=== PATIENT | male | born 1960 | race Caucasian/White ===

== ENCOUNTER 2020-08-06 16:42 | Emergency (ER) | payer SELFPAY ==
--- NOTE | 2020-08-06 18:23 | RADIOLOGY REPORT (SQ) ---
EXAM DESCRIPTION: TIBIA FIBULA LEFT IMAGES COMPLETED DATE/TIME: 08/06/2020 6:01 pm REASON FOR STUDY: LLE pain; no injury COMPARISON: None. NUMBER OF VIEWS: Two views. TECHNIQUE: Two radiographic images acquired of the left tibia and fibula to include the knee and ank le in at least one projection. LIMITATIONS: None. FINDINGS: MINERALIZATION: Normal. BONES: No acute fracture or dislocation. No worrisome bone lesions. No significant osteophytes. SOFT TISSUES: Knee joint effusion. No radiopaque foreign body. OTHER: No other significant finding. IMPRESSION: Knee joint effusion. No fracture identified. TECHNICAL DOCUMENTATION: JOB ID: [id number] [place]-72 2010 [employer]- All Rights Reserved Reading location - IP/workstation name: [email or web address]
--- NOTE | 2020-08-06 18:26 | RADIOLOGY REPORT (SQ) ---
EXAM DESCRIPTION: KNEE LEFT 4 VIEW IMAGES COMPLETED DATE/TIME: 08/06/2020 6:01 pm REASON FOR STUDY: LLE pain; no injury COMPARISON: None. EXAM PARAMETERS: NUMBER OF VIEWS: Four views. TECHNIQUE: AP, lateral and oblique radiographic images acquired of the left knee. LIMITATIONS: None. FINDINGS: MINERALIZATION: Normal. BONES: No acute fracture or dislocation. No worrisome bone lesions. JOINTS: Moderate effusion. SOFT TISSUES: No significant soft tissue swelling. No radiopaque foreign body. OTHER: No other significant finding. IMPRESSION: NO FRACTURE. Moderate joint effusion. TECHNICAL DOCUMENTATION: JOB ID: [id number] [place]-72 2010 [employer]- All Rights Reserved Reading location - IP/workstation name: [email or web address]
--- NOTE | 2020-08-06 19:39 | ER Document Report ---
HPI - HPI Time Seen by Provider: 08/06/20 17:14 Pain Level: 2 Context: Patient is a 59-year-old male presents emergency department with a chief complaint of left knee and leg pain. Patient states that he has had on and off pain for the past month. He states that he noticed some swelling to his left leg that started about 3 days ago. 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 He denies any past medical history. He does not take any medications on a regular basis, other than Aleve. Denies any fever, body aches, or chills. Denies any shortness of breath or difficulty breathing. Denies any long car rides. Patient is a smoker. - ROS Systems Reviewed and Negative: Yes All other systems reviewed and negative - CONSTITUTIONAL Constitutional: DENIES: Fever, Chills - RESPIRATORY Respiratory: DENIES: Trouble Breathing - GASTROINTESTINAL Gastrointestinal: DENIES: Abdominal Pain, Nausea, Patient vomiting - MUSCULOSKELETAL Musculoskeletal: REPORTS: Extremity pain - Left knee, Swelling - left knee - DERM Skin Color: Normal Skin Problems: None Past Medical History - General Information source: Patient - Social History Smoking Status: Current Every Day Smoker Family History: Reviewed & Not Pertinent Vertical Provider Document - CONSTITUTIONAL Agree With Documented VS: Yes Exam Limitations: No Limitations General Appearance: No Apparent Distress - INFECTION CONTROL TRAVEL OUTSIDE OF THE [place] IN LAST 30 DAYS: No - HEENT HEENT: Atraumatic, Normocephalic, PERRLA - NECK Neck: Normal Inspection - RESPIRATORY Respiratory: No Respiratory Distress - CARDIOVASCULAR Cardiovascular: Regular Rate, Regular Rhythm Pulses: Normal: Radial - MUSCULOSKELETAL/EXTREMETIES Musculoskeletal/Extremeties: FROM, Tender - Left lateral knee, Edema - Left knee. negative: Eccymosis - NEURO Level of Consciousness: Awake, Alert, Appropriate Motor/Sensory: No Motor Deficit, No Sensory Deficit - DERM Integumentary: Warm, Dry, No Rash Course - Re-evaluation Re-evalutation: 08/06/20 19:37 Patient's x-ray shows a joint effusion. Ultrasound is negative for DVT. We will provide the patient an Raudel wrap. Follow-up with orthopedics as needed. He is in agreement with this plan. I offered the patient crutches but he refused. States that he has a cane at home. Instructed the patient on resting, icing, elevating, and using Raudel wrap. Follow-up precautions were given. Verbal discharge instructions were given to the patient. They verbalized understanding. They are stable for discharge. - Vital Signs Vital signs: Temp Pulse Resp BP Pulse Ox 97.9 F 97 16 135/88 H 98 08/06/20 16:57 08/06/20 16:57 08/06/20 16:57 08/06/20 16:57 08/06/20 16:57 Procedures - Immobilization Left Knee Pre-Proc Neuro Vasc Exam: Normal Immobilizer type: Raudel wrap Discharge - Discharge Clinical Impression: Joint effusion of knee Qualifiers: Laterality: left Qualified Code(s): M25.462 - Effusion, left knee Condition: Stable Disposition: HOME, SELF-CARE Additional Instructions: You were seen today in the emergency department for left knee swelling. 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 Wear the Raudel wrap. Follow-up with orthopedics if you continue to have pain. Continue Aleve. Rest, apply ice, and elevate your leg. Follow-up with orthopedics if you continue to have symptoms. Forms: Return to Work Referrals: YAS FAROOQ DO [ACTIVE STAFF] - Follow up as needed
[2020-08-06 19:53] VITALS: BP 140/89
--- NOTE | 2020-08-06 19:55 | RADIOLOGY REPORT (SQ) ---
EXAM DESCRIPTION: VENOUS UNILATERAL LOWER IMAGES COMPLETED DATE/TIME: 08/06/2020 7:33 pm REASON FOR STUDY: LLE pain COMPARISON: None. TECHNIQUE: Dynamic and static venegas scale and color images acquired of the left leg venous system. Se lected spectral images acquired with additional compression and augmentation maneuvers. The contralat eral common femoral vein and saphenofemoral junction were also imaged. Images stored on PACS. LIMITATIONS: None. FINDINGS: COMMON FEMORAL: Normal phasicity, compression and augmentation. No visualized echogenic ma terial on venegas scale. No defects on color images. FEMORAL: Normal compression and augmentation. No visualized echogenic material on venegas scale. No defe cts on color images. POPLITEAL: Normal compression, augmentation. No visualized echogenic material on venegas scale. No defec ts on color images. CALF VESSELS: Normal compression, augmentation. No visualized echogenic material on venegas scale. No de fects on color images. GSV and SSV: Normal compression, augmentation. No visualized echogenic material on venegas scale. No def ects on color images. ANY DEEP VENOUS INSUFFICIENCY: Not evaluated. ANY EVIDENCE OF POPLITEAL CYST: No. OTHER: Free fluid subcutaneous tissues suprapatellar. CONTRALATERAL COMMON FEMORAL VEIN AND SAPHENOFEMORAL JUNCTION: Normal phasicity, compression and augmentation. No visualized echogenic material on venegas scale. No de fects on color images. IMPRESSION: NO EVIDENCE OF DVT OR SVT IN THE LEFT LEG. TECHNICAL DOCUMENTATION: JOB ID: [id number] [place]-72 2010 [employer]- All Rights Reserved Reading location - IP/workstation name: [email or web address]
== END 2020-08-06 19:48 | disposition home or self-care (01) ==
LOC: ER 16:42
DX: M25.462 Effusion, left knee (principal); M25.562 Pain in left knee; M79.605 Pain in left leg; F17.200 Nicotine dependence, unspecified, uncomplicated
CPT/HCPCS: 93971; 99284